=== PATIENT | female | born 2000 | race Two or more races ===

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

== ENCOUNTER 2022-03-03 08:55 | Outpatient (CLI) | payer OTHER | END 2022-03-03 08:59 | disposition home or self-care (01) | LOC: LAB 08:55 | PROVIDERS: ATTEND Specialist | DX: Z34.80 Encounter for supervision of other normal pregnancy, unspecified trimester (principal) ==

== ENCOUNTER 2022-03-11 09:03 | Emergency (ER) | payer OTHER ==
[~2022-03-11] VITALS: Ht 157.5 cm; Wt 80.7 kg
== END 2022-03-11 12:14 | disposition home or self-care (01) ==
LOC: ER 09:03
DX: O23.41 Unspecified infection of urinary tract in pregnancy, first trimester (principal); N39.0 Urinary tract infection, site not specified; Z3A.12 12 weeks gestation of pregnancy; R07.9 Chest pain, unspecified; Z20.822 Contact with and (suspected) exposure to COVID-19

== ENCOUNTER 2022-03-29 10:50 | Outpatient (CLI) | payer OTHER | END 2022-03-29 11:01 | disposition home or self-care (01) | LOC: LAB 10:50 | PROVIDERS: ATTEND Internal Medicine Gastroenterology | DX: R79.89 Other specified abnormal findings of blood chemistry (principal) ==

== ENCOUNTER 2022-04-22 09:56 | Outpatient (CLI) | payer OTHER | END 2022-04-22 10:07 | disposition home or self-care (01) | LOC: LAB 09:56 | PROVIDERS: ATTEND Specialist | DX: Z34.80 Encounter for supervision of other normal pregnancy, unspecified trimester (principal) ==

== ENCOUNTER 2022-07-01 08:49 | Outpatient (CLI) | payer OTHER | END 2022-07-01 09:02 | disposition home or self-care (01) | LOC: LAB 08:49 | PROVIDERS: ATTEND Specialist | DX: Z34.80 Encounter for supervision of other normal pregnancy, unspecified trimester (principal) ==

== ENCOUNTER 2022-08-26 16:32 | Outpatient (CLI) | payer OTHER | END 2022-08-26 17:40 | disposition home or self-care (01) | LOC: NST 16:32 | PROVIDERS: ATTEND Specialist | DX: Z34.83 Encounter for supervision of other normal pregnancy, third trimester (principal) ==

== ENCOUNTER 2022-09-07 09:15 | Inpatient (IN) | payer OTHER ==
[~2022-09-07] VITALS: Ht 157.5 cm; Wt 88.9 kg
[2022-09-07] MEDS ORDERED: PRENATAL TABLE1 EAC1 PO (17:18)
[2022-09-07] MEDS ORDERED: AMPICILLIN TRI500 MG PO (17:18)
== END 2022-09-10 14:57 | disposition home or self-care (01) | DRG 788 ==
LOC: EDSTATUS 09:15 → LDR 14:45 → O/R 18:04 → OB/GYN 19:19
PROVIDERS: ADMIT Specialist; ATTEND Specialist
PROC: 4A1HXCZ Monitoring of Products of Conception, Cardiac Rate, External Approach (ICD-10-PCS; 2022-09-07)
PROC: 10D00Z1 Extraction of Products of Conception, Low, Open Approach (ICD-10-PCS; principal; 2022-09-07 19:00)
DX: O34.211 Maternal care for low transverse scar from previous cesarean delivery (principal); O99.824 Streptococcus B carrier state complicating childbirth; Z3A.38 38 weeks gestation of pregnancy; Z37.0 Single live birth; Z20.822 Contact with and (suspected) exposure to COVID-19